=== PATIENT | female | born 1995 | race Caucasian/White ===

== ENCOUNTER → 2025-01-14 | Outpatient (CLI) | payer BC | END | disposition home or self-care (01) | LOC: CARD 09:00 | PROVIDERS: ATTEND Family Medicine | DX: R55 Syncope and collapse (principal) ==

== ENCOUNTER 2025-03-25 19:31 | Emergency (ER) | payer BC ==
[~2025-03-25] VITALS: Ht 165.1 cm; Wt 99.8 kg
[2025-03-25] MEDS ORDERED: Rabies Vaccine 1 ML VIAL IM ONE (19:40)
[2025-03-25] MEDS ORDERED: LEVOTHYROXINE112 MC1 PO (19:55)
== END 2025-03-25 20:39 | disposition home or self-care (01) ==
LOC: ED 19:31
DX: S61.452A Open bite of left hand, initial encounter (principal); Z23 Encounter for immunization; W55.01XA Bitten by cat, initial encounter; Y93.89 Activity, other specified; Y92.89 Other specified places as the place of occurrence of the external cause; Y99.8 Other external cause status